=== PATIENT | male | born 1950 | race Two or more races ===

== ENCOUNTER 2019-02-25 22:28 | Emergency (ER) | payer MEDICARE ==
[~2019-02-25] VITALS: Ht 180.3 cm; Wt 77.1 kg
[2019-02-25] MEDS ORDERED: LIDOCAINE 2% JEL UROJET 10 ML MM ONE ×2 (22:46→23:00)
--- NOTE | 2019-02-25 23:14 | NUR ---
BIBF.C/O "HAVING URINARY RETENTION TODAY SINCE MORNING, WAS ABLE TO PEE A LITTLE BIT YESTERDAY. BUT NONE TODAY" VSS. +DISTRESS. AOX4. AMBULATORY.
[2019-02-25 23:15] LABS: APPEARANCE,URINE Clear (CLEAR); BILIRUBIN,URINE Negative (NEGATIVE); BLOOD, URINE Small Ery/uL (NEGATIVE); COLOR,URINE Yellow (YELLOW); KETONES,URINE Negative (NEGATIVE); LEUKOCYTE ESTERASE ,URINE Negative (NEGATIVE); NITRITE, URINE Negative (NEGATIVE); PROTEIN,URINE Negative (NEGATIVE); UGLUCOSE Negative (NEGATIVE); UROBILINOGEN,URINE 0.2 EU/dL (0.2)
[2019-02-26 00:04] LABS: BACTERIA,URINE Few /HPF (None Seen); RBC,URINE 51-80 /HPF (0-2); SQUAMOUS EPITHELIAL CELL,UR Rare /HPF (None Seen); WBC,URINE 0-2 /HPF (0-3)
[2019-02-26 00:22] VITALS: BP 137/81
== END 2019-02-26 00:23 | disposition home or self-care (01) ==
LOC: ER 22:31
DX: R33.9 Retention of urine, unspecified (principal); N40.0 Benign prostatic hyperplasia without lower urinary tract symptoms
CPT/HCPCS: 51702; 81001; 99284; J3490; 81000-TC; 87086-TC